=== PATIENT | female | born 1970 | race Hispanic/Latino ===

== ENCOUNTER 2025-04-19 21:01 | Emergency (ER) | payer SELFPAY ==
[~2025-04-19] VITALS: Ht 157.5 cm; Wt 90.0 kg
[2025-04-20] MEDS ORDERED: predniSONE 20 MG TAB PO ONE (01:45)
[2025-04-20] MEDS ORDERED: PREDNISONE20 MG PO ×2 (01:51→02:03)
[2025-04-20 02:18] VITALS: BP 139/86
== END 2025-04-20 02:18 | disposition home or self-care (01) ==
LOC: ED 21:01
DX: I77.6 Arteritis, unspecified (principal); I10 Essential (primary) hypertension
CPT/HCPCS: J7512